=== PATIENT | female | born 1960 | race Caucasian/White ===

== ENCOUNTER 2019-06-05 22:30 | Emergency (ER) | payer MEDICAID ==
[2019-06-05] MEDS ORDERED: Sodium Chloride 0.9% 10 ML Syringe FLUSH PRN (22:48)
[2019-06-05] MEDS ORDERED: Aspirin 81 MG Tab.Chew PO ONE (22:52)
[2019-06-05] MEDS ORDERED: Nitroglycerin 0.4 MG Tab.SL SL PRN (22:53)
--- NOTE | 2019-06-05 22:54 | EDM.PDOC ---
ED HPI GENERAL MEDICAL PROBLEM - General Chief Complaint: Chest Pain Stated Complaint: chest pain Time Seen by Provider: 06/05/19 22:45 Source of Information: Reports: Patient, RN Notes Reviewed History Limitations: Reports: No Limitations - History of Present Illness INITIAL COMMENTS - FREE TEXT/NARRATIVE: This patient presents to the ED for evaluation of chest pain. She states she got up to use the bathroom at about 2100 when she felt a tightness in her chest. It has remained in the same place, substernal, since that time. she rates the the pain at 5/10 and denies radiation of the pain to neck, arms, or back. She denies difficulty breathing or nausea. she has a history of HTN and has had some recent changes in her medications in an attempt to better control her BP. She was seen in the clinic yesterday and started a new medication and lasix today. She states she also has a history of CHF and notes that her ankles are swollen but they "are better." She denies recent illness, cough, URIs, fevers. Onset: Today, Sudden Onset Time: 21:00 Location: Reports: Chest Quality: Reports: Dull, Pressure Improves with: Reports: None Worsens with: Reports: None Context: Reports: Activity Associated Symptoms: Denies: Fever/Chills, Headaches, Shortness of Breath, Syncope, Weakness - Related Data Allergies Allergy/AdvReac Type Severity Reaction Status Date / Time No Known Allergies Allergy Verified 06/05/19 22:43 Home Meds: Home Meds Hydrochlorothiazide 25 mg PO DAILY 05/23/14 [History] RX: metFORMIN [Glucophage] 500 mg PO BID 05/23/14 [History] amLODIPine Besylate [Amlodipine Besylate] 10 mg PO DAILY 05/23/14 [History] Carvedilol [Coreg] 12.5 mg PO BID 06/05/19 [History] Furosemide 20 mg PO BID 06/05/19 [History] Potassium Citrate [Potassium Citrate ER] 10 meq PO 06/05/19 [History] ED ROS GENERAL - Review of Systems Review Of Systems: See Below Constitutional: Reports: No Symptoms. Denies: Fever, Fatigue, Decreased Appetite HEENT: Reports: No Symptoms Respiratory: Denies: Shortness of Breath, Cough, Hemoptysis Cardiovascular: Reports: Chest Pain, Blood Pressure Problem, Dyspnea on Exertion , Edema, Orthopnea. Denies: Lightheadedness, Palpitations GI/Abdominal: Reports: No Symptoms Musculoskeletal: Reports: No Symptoms Skin: Reports: No Symptoms Neurological: Reports: No Symptoms ED EXAM, GENERAL - Physical Exam Exam: See Below Exam Limited By: No Limitations General Appearance: Alert, WD/WN, No Apparent Distress, Mild Distress, Obese Eye Exam: Bilateral Eye: PERRL Ears: Normal External Exam, Hearing Grossly Normal Nose: Normal Inspection Throat/Mouth: Normal Inspection Head: Atraumatic, Normocephalic Neck: Normal Inspection, Full Range of Motion Respiratory/Chest: No Respiratory Distress, Lungs Clear, Normal Breath Sounds, No Accessory Muscle Use Cardiovascular: Normal Peripheral Pulses, No JVD, Tachycardia. No: Diastolic Murmur, Systolic Murmur GI/Abdominal: Soft, Non-Tender, No Distention Extremities: Normal Inspection Neurological: Alert, Oriented, Normal Cognition Psychiatric: Normal Affect, Normal Mood Skin Exam: Warm, Dry, Intact EKG INTERPRETATION EKG Date: 06/05/19 Time: 22:35 Rhythm: NSR Pilot Point: Normal P-Wave: Present QRS: Normal ST-T: Normal QT: Prolonged Course - Vital Signs Last Recorded V/S: Last Vital Signs Temp 36.6 C 06/05/19 23:22 Pulse 93 06/05/19 23:26 Resp 16 06/05/19 23:26 BP 159/112 H 06/05/19 23:35 Pulse Ox 96 06/05/19 23:26 - Orders/Labs/Meds Orders: Active Orders 24 hr Category Date Time Status EKG Documentation Completion [RC] ASDIRECTED Care 06/05/19 23:04 Active Chest 2V [CR] Stat Exams 06/05/19 22:48 Taken Heparin Sodium/D5W [Heparin 25,000 Units in D5W 500 ML] Med 06/05/19 23:48 Ordered 25,000 units in 500 ml IV NOW Nitroglycerin [Nitrostat] Med 06/05/19 22:53 Active 0.4 mg SL Q5M PRN Sodium Chloride 0.9% [Saline Flush] Med 06/05/19 22:48 Active 10 ml FLUSH ASDIRECTED PRN Saline Lock Insert [OM.PC] Stat Oth 06/05/19 22:48 Ordered Medication Orders Heparin Sodium/Dextrose (Heparin 25,000 Units In D5w 500 Ml) 25,000 units in 500 mls @ 20 mls/hr IV NOW STA; Protocol Stop: 06/07/19 00:47 Nitroglycerin (Nitrostat) 0.4 mg SL Q5M PRN PRN Reason: Chest Pain Last Admin: 06/05/19 23:35 Dose: 0.4 mg Sodium Chloride (Saline Flush) 10 ml FLUSH ASDIRECTED PRN PRN Reason: Keep Vein Open Last Admin: 06/05/19 22:58 Dose: 10 ml Labs: Laboratory Tests 06/05/19 06/05/19 Range/Units 22:52 22:52 WBC 10.4 (4.0-11.0) K/uL RBC 5.58 (3.80-5.80) M/uL Hgb 15.6 (11.5-16.5) g/dL Hct 48.4 H (37.0-47.0) % MCV 87 (76-96) fL MCH 28.0 (27.0-32.0) pg MCHC 32.2 (31.0-35.0) g/dL RDW 14.8 (11.0-16.0) % Plt Count 195 D (150-500) K/uL MPV 13.0 H (6.0-10.0) fL Neut % (Auto) 62.5 (45.0-70.0) % Lymph % (Auto) 27.7 (20.0-40.0) % Coleman % (Auto) 7.6 (3.0-10.0) % Eos % (Auto) 1.9 (1.0-5.0) % Baso % (Auto) 0.3 (0.0-0.5) % Neut # (Auto) 6.49 (2.00-7.50) K/uL Lymph # (Auto) 2.88 (1.50-4.00) K/uL Coleman # (Auto) 0.79 (0.20-0.80) K/uL Eos # (Auto) 0.20 (0.04-0.40) K/uL Baso # (Auto) 0.03 (0.02-0.10) K/uL Sodium 141 (136-145) mmol/L Potassium 3.7 (3.5-5.1) mmol/L Chloride 100 (98-107) mmol/L Carbon Dioxide 32.4 H (21.0-32.0) mmol/L Anion Gap 12.3 (5.0-15.0) mmol/L BUN 26 D (8-26) mg/dL Creatinine 2.04 H D (0.55-1.02) mg/dL Est Cr Clr Drug Dosing TNP Estimated GFR (MDRD) 25 L (>60) MLS/MIN BUN/Creatinine Ratio 12.7 (6-25) Glucose 203 H (74-100) mg/dL Calcium 8.3 L (8.5-10.1) mg/dL Troponin I 0.271 H* D (0.000-0.060) ng/mL B-Natriuretic Peptide 3498 H (0-125) pg/mL Meds: Medications Generic Name Dose Route Start Last Admin Trade Name Freangela PRN Reason Stop Dose Admin Heparin Sodium/Dextrose 25,000 units in 500 mls @ 20 mls/hr 06/05/19 23:48 Heparin 25,000 Units In D5w 500 Ml IV 06/07/19 00:47 NOW STA Protocol Nitroglycerin 0.4 mg 06/05/19 22:53 06/05/19 23:35 Nitrostat SL 0.4 mg Q5M PRN Administration Chest Pain Sodium Chloride 10 ml 06/05/19 22:48 06/05/19 22:58 Saline Flush FLUSH 10 ml ASDIRECTED PRN Administration Keep Vein Open Discontinued Medications Generic Name Dose Route Start Last Admin Trade Name Freangela PRN Reason Stop Dose Admin Aspirin 324 mg 06/05/19 22:52 06/05/19 22:58 Aspirin PO 06/05/19 22:53 324 mg ONETIME ONE Administration Heparin Sodium (Porcine) Confirm 06/06/19 00:15 Heparin Sodium Administered 06/06/19 00:16 Dose 10,000 units .ROUTE .STK-MED ONE Heparin Sodium (Porcine) 5,000 units 06/06/19 00:14 Heparin Sodium IVPUSH 06/06/19 00:15 .BOLUS ONE Heparin Sodium/Dextrose Confirm 06/06/19 00:15 Heparin 25,000 Units In D5w 500 Ml Administered 06/06/19 00:16 Dose 500 mls @ as directed .ROUTE .STK-MED ONE - Radiology Interpretation Free Text/Narrative:: This patient presents to the ED for evaluation of chest pain. History and clinical findings are most consistent with a NSTEMI as supported by a troponin of 0.27. The patient's pain decreased to a 1 after she was given ASA and one dose of NTG; blood pressure decreased as well. She continued to deny headache, nausea, difficulty breathing. I did contact [facility] and spoke to Dr. Castaneda from cardiology who did agree to accept this patient's transfer to their facility. Prior to transfer she was given subcutaneous heparin of 5,000 units and a heparin drip was started at 12 units/kg/hour (1200 units per hour). Arrangements were made to transfer by [facility] ground ambulance and the patient was stable at the time of transfer. Departure - Departure Time of Disposition: 00:30 Disposition: DC/Tfer to Other 70 Reason for Transfer *Q: Other (higher level of care requred) Condition: Fair Clinical Impression: NSTEMI (non-ST elevated myocardial infarction), Acute myocardial infarction Referrals: PCP,None [Primary Care Provider] - Forms: ED Department Discharge, Interfacility Transfer EMTALA - Problem List & Annotations (1) NSTEMI (non-ST elevated myocardial infarction) SNOMED Code(s): 76917559 Code(s): I21.4 - NON-ST ELEVATION (NSTEMI) MYOCARDIAL INFARCTION Status: Acute Priority: High Current Visit: Yes - Problem List Review Problem List Initiated/Reviewed/Updated: Yes - My Orders Last 24 Hours: My Active Orders 06/05/19 22:48 Chest 2V [CR] Stat Sodium Chloride 0.9% [Saline Flush] 10 ml FLUSH ASDIRECTED PRN Saline Lock Insert [OM.PC] Stat 06/05/19 22:53 Nitroglycerin [Nitrostat] 0.4 mg SL Q5M PRN 06/05/19 23:04 EKG Documentation Completion [RC] ASDIRECTED 06/05/19 23:48 Heparin Sodium/D5W [Heparin 25,000 Units in D5W 500 ML] 25,000 units in 500 ml IV NOW - Assessment/Plan Last 24 Hours: My Active Orders 06/05/19 22:48 Chest 2V [CR] Stat Sodium Chloride 0.9% [Saline Flush] 10 ml FLUSH ASDIRECTED PRN Saline Lock Insert [OM.PC] Stat 06/05/19 22:53 Nitroglycerin [Nitrostat] 0.4 mg SL Q5M PRN 06/05/19 23:04 EKG Documentation Completion [RC] ASDIRECTED 06/05/19 23:48 Heparin Sodium/D5W [Heparin 25,000 Units in D5W 500 ML] 25,000 units in 500 ml IV NOW
[2019-06-05 23:30] VITALS: PULSE 93
[2019-06-05 23:40] VITALS: BP 159/112
[2019-06-05] MEDS ORDERED: Heparin Sodium/D5W 25,000 UNITS/500 ML BAG IV STA (23:48)
[2019-06-05] MEDS ORDERED: Heparin Sodium 5,000 Units/ML Vial SUBCUT ONE (23:53)
[2019-06-06] MEDS ORDERED: Heparin Sodium 5,000 UNITS/0.5 ML Syringe IVPUSH ONE (00:14)
[2019-06-06] MEDS ORDERED: Heparin Sodium 1,000 Units/ML 10 ML MDV ONE (00:15)
[2019-06-06] MEDS ORDERED: Heparin Sodium/D5W 500 ML ONE (00:15)
--- NOTE | 2019-06-06 16:50 | CR ---
CLINICAL DATA: Chest pain. PA AND LATERAL CHEST, 05 JUNE 2019: Comparison is made to a prior exam dated 23 June 2014. The heart is enlarged. It has increased in size from the prior exam. Aorta is calcified and ectatic. The lungs are clear. No pneumothorax. No pleural effusions. There is degenerative disk disease throughout the thoracic spine. IMPRESSION: Cardiomegaly with increased heart size from prior study. Job: [id number] [facility]
== END 2019-06-06 00:50 ==
LOC: LB.ED 22:30
DX: I21.4 Non-ST elevation (NSTEMI) myocardial infarction (principal)
CPT/HCPCS: 36415; 71046; 80048; 83880; 84484; 85025; 93005; 99285; A9270; J1644

== ENCOUNTER 2021-06-06 09:04 | Emergency (ER) | payer MEDICAID ==
[2021-06-06] MEDS: Orphenadrine 60 MG/2 ML Inj IM ONE (09:28)
[2021-06-06] MEDS ORDERED: Cyclobenzaprine 10 MG Tab ONE (09:30)
[2021-06-06] MEDS: Ketorolac 60 MG/2 ML SDV IM ONE (09:37)
--- NOTE | 2021-06-06 09:50 | EDM.PDOC ---
ED HPI GENERAL MEDICAL PROBLEM - General Chief Complaint: Back Pain or Injury Stated Complaint: Back Pain Time Seen by Provider: 06/06/21 09:11 Source of Information: Reports: Patient History Limitations: Reports: No Limitations - History of Present Illness INITIAL COMMENTS - FREE TEXT/NARRATIVE: 61-year-old female presents the ED complaining of back pain. Patient began experiencing back pain acutely on Monday this is day #3. No trauma involved/no triggering noted. Improves with rest, gets worse with prolonged standing. Described as a sharp ache above the right buttocks. No radiation up the back or down into the leg. At its worst patient rates it as an 8/10 at rest is a 3/10. Patient denies chest pain, shortness of breath syncope/near syncope nausea vomiting, constipation diarrhea, fevers, saddle anesthesia, or neurological deficits. - Related Data Allergies Allergy/AdvReac Type Severity Reaction Status Date / Time No Known Allergies Allergy Verified 06/05/19 22:43 Home Meds: Home Meds Hydrochlorothiazide 25 mg PO DAILY 05/23/14 [History] amLODIPine Besylate [Amlodipine Besylate] 10 mg PO DAILY 05/23/14 [History] metFORMIN [Glucophage] 500 mg PO BID 05/23/14 [History] Furosemide 20 mg PO BID 06/05/19 [History] Potassium Citrate [Potassium Citrate ER] 10 meq PO 06/05/19 [History] carvediloL [Coreg] 12.5 mg PO BID 06/05/19 [History] Cyclobenzaprine [Flexeril] 10 mg PO TID #15 tab 06/06/21 [Rx] Past Medical History HEENT History: Reports: Impaired Vision Cardiovascular History: Reports: Cardiomyopathy, Hypertension, Other (See Below) Other Cardiovascular History: CHF [employer] History: Reports: Endocrine/Metabolic History: Reports: Diabetes, Type II Hematologic History: Reports: None - Past Surgical History HEENT Surgical History: Reports: Eye Surgery Cardiovascular Surgical History: Reports: None GI Surgical History: Reports: Appendectomy, Cholecystectomy Endocrine Surgical History: Reports: None Social & Family History - Family History Family Medical History: No Pertinent Family History (Immobilized treatment with at 1 L none of them due to Is hard to struggle) - Caffeine Use Caffeine Use: Reports: Coffee, Soda ED ROS GENERAL - Review of Systems Review Of Systems: Comprehensive ROS is negative, except as noted in HPI. ED EXAM, GENERAL - Physical Exam Exam: See Below Free Text/Narrative:: 11-year-old female found sitting in bay [facility] ED. No apparent distress, speaking in full sentences. No obvious trauma. Alert and oriented 3/3 GCS 4 5 6 Exam Limited By: No Limitations General Appearance: Alert, WD/WN, No Apparent Distress Eye Exam: Bilateral Eye: EOMI, PERRL Ears: Normal External Exam, Hearing Grossly Normal Nose: Normal Inspection, No Blood Throat/Mouth: Normal Lips, Normal Voice, No Airway Compromise Head: Atraumatic, Normocephalic Neck: Normal Inspection, Supple, Non-Tender, Full Range of Motion. No: Tender Lateral, Tender Midline Respiratory/Chest: No Respiratory Distress, Lungs Clear, Normal Breath Sounds, No Accessory Muscle Use, Chest Non-Tender Cardiovascular: Normal Peripheral Pulses, Regular Rate, Rhythm, No Edema, No Gallop, No JVD, No Murmur, No Rub GI/Abdominal: Soft, Non-Tender Back Exam: Full Range of Motion, Paraspinal Tenderness (Right near L5-S1, muscle tightness radiating off at 45 degrees from that point into the buttocks), Other (Negative straight leg test, patient able to do leg raises against resistance without difficulty or increase in pain) Extremities: Normal Inspection, Normal Range of Motion, Non-Tender, No Pedal Edema, Normal Capillary Refill Neurological: Alert, Oriented, Normal Cognition, Normal Gait Psychiatric: Normal Affect, Normal Mood Skin Exam: Warm, Dry, Intact, Normal Color, No Rash Course - Orders/Labs/Meds Meds: Medications Discontinued Medications Generic Name Dose Route Start Last Admin Trade Name Kyra PRN Reason Stop Dose Admin Ketorolac Tromethamine 30 mg 06/06/21 09:36 06/06/21 09:37 Ketorolac 60 Mg/2 Ml Sdv IM 06/06/21 09:37 30 mg ONETIME ONE Administration Orphenadrine Citrate 60 mg 06/06/21 09:23 06/06/21 09:28 Orphenadrine 60 Mg/2 Ml Inj IM 06/06/21 09:24 60 mg ONETIME ONE Administration Departure - Departure Time of Disposition: 10:00 Disposition: Home, Self-Care 01 Condition: Good Clinical Impression: Back pain Qualifiers: Back pain location: low back pain Chronicity: acute Back pain laterality: right Sciatica presence: without sciatica Qualified Code(s): M54.50 - Low back pain, unspecified - Discharge Information *PRESCRIPTION DRUG MONITORING PROGRAM REVIEWED*: No *COPY OF PRESCRIPTION DRUG MONITORING REPORT IN PATIENT NICKOLAS: No Instructions: Acute Back Pain, Adult - Assessment/Plan Assessment:: 61-year-old male who presents for evaluation of back pain. They have a history of episodic periods of back pain in the past. Pain has improved with interventions in the emergency room. Patient did not sustain any trauma, therefore x-rays are not necessary due to the low likelihood of fracture or subluxation. No red flag symptoms to suggest a CT and or MRI are indicated at this point. The patient has not had a fever. No saddle/perineal anesthesia. Bilateral numb in the feet, or bowel/bladder dysfunction. There is no clinical evidence of cauda equina syndrome. Discitis, spinal epidural space hematoma or epidural abscess. Neurologic exam is normal and the patient's symptoms seem consistent with a muscle skeletal issues and significant muscle spasm as evid enced by pain in the paraspinous and muscles of the back on palpation. Patient will be discharged with medications to use as directed. Ice or heat to the back and stretching exercises no heavy lifting bending or twisting. Return if increasing pain, numbness, weakness or bowel/bladder dysfunction. Patient was advised to schedule follow-up with primary care provider within 3 days to reassess symptoms. Plan: ABC, history, exam, patient education/shared decision making, Norflex IM 60 mg, ketorolac 30 mg IM secondary conversation regarding decreased kidney function, w ith patient consent, patient to be sent home with prescriptions for Tylenol scheduled 650 every 6 hours for 3 days and cyclobenzaprine 10 mg 3 times daily as needed for pain. Follow-up with primary care provider. All questions were answered to the patient's satisfaction patient understood and agreed to treatment plan, patient to follow-up in primary care provider
== END 2021-06-06 09:50 | disposition home or self-care (01) ==
LOC: LB.ED 09:04
DX: M54.50 Low back pain, unspecified (principal); I11.0 Hypertensive heart disease with heart failure; I50.9 Heart failure, unspecified; E11.9 Type 2 diabetes mellitus without complications; Z79.84 Long term (current) use of oral hypoglycemic drugs; Z79.899 Other long term (current) drug therapy
CPT/HCPCS: 96372; 99283; A9270-GY; J1885; J2360

== ENCOUNTER 2023-05-25 08:56 | Day surgery (SDC) | payer MEDICAID ==
[~2023-05-25 08:56] MED LIST: Metoclopramide 10 MG/2 ML SDV IV PRN; Sodium Chloride 0.9% 1,000 ML IV SCH
[2023-05-25 11:43] VITALS: BP 131/62; PULSE 73
== END 2023-05-25 12:33 | disposition home or self-care (01) ==
LOC: LB.SDS 08:56
PROVIDERS: ATTEND Surgery
DX: Z12.11 Encounter for screening for malignant neoplasm of colon (principal); I11.0 Hypertensive heart disease with heart failure; I50.9 Heart failure, unspecified; E11.9 Type 2 diabetes mellitus without complications
CPT/HCPCS: 45378; 82947; J7030